=== PATIENT | male | born 1945 | race Asian ===

== ENCOUNTER 2018-02-07 08:21 | Inpatient (IN) | payer MEDICARE, BC ==
[~2018-02-07] VITALS: Ht 167.6 cm; Wt 77.3 kg
[2018-02-07] MEDS ORDERED: SODIUM CHLORIDE 0.9% 1,000 ML IV ONE ×3 (08:25→10:45)
[2018-02-07] MEDS ORDERED: HYDR-4106 PO (08:40)
[2018-02-07] MEDS ORDERED: MET750 PO (08:40)
[2018-02-07] MEDS ORDERED: ATOR40TA28 PO (08:40)
[2018-02-07] MEDS ORDERED: MOM30 PO (08:40)
[2018-02-07] MEDS ORDERED: SITA50 PO (08:40)
[2018-02-07] MEDS ORDERED: LISI-661 PO (08:40)
[2018-02-07] MEDS ORDERED: PARO10TA89 PO (08:40)
[2018-02-07] MEDS ORDERED: TERA2 PO (08:40)
[2018-02-07] MEDS ORDERED: LORA0.5T2 PO (08:40)
[2018-02-07] MEDS ORDERED: AMLO-512 PO (08:40)
[2018-02-07 08:47] LABS: EOSINOPHILS % (AUTO) 0.1 % (1.0-6.0); HEMATOCRIT 38.1 % (41-53); HEMOGLOBIN 12.5 g/dL (13.5-17.5); LYMPHOCYTES # (AUTO) 1.7 K/uL (1.0-4.8); LYMPHOCYTES % (AUTO) 7.3 % (22.0-44.0); MEAN CORPUSCULAR HEMOGLOBIN 26.9 pg (26.0-34.0); MEAN CORPUSCULAR HGB CONC 32.9 G/dL (31.0-37.0); MEAN CORPUSCULAR VOLUME 82 fL (80-100); MONOCYTES # (AUTO) 1.6 K/uL (0.1-1.0); NEUTROPHILS # (AUTO) 19.3 K/uL (1.8-7.7); NEUTROPHILS % (AUTO) 84.6 % (40.0-70.0); PLATELET COUNT (AUTO) 235 K/uL (150-450); RED BLOOD CELL COUNT(AUTO) 4.67 MIL/uL (4.50-5.90); RED CELL DISTRIBUTION WIDTH 14.2 % (11.5-14.5)
[2018-02-07 08:57] LABS: ANION GAP 6 mmol/L (8-16); CALCIUM, TOTAL 8.4 mg/dL (8.8-10.5); CARBON DIOXIDE 31 mmol/L (22-29); CHLORIDE 100 mmol/L (98-107); CREATININE 3.17 mg/dL (0.60-1.30); GLOMERULAR FILTR. RATE CALC 19 mL/min (>60); GLUCOSE,RANDOM 258 mg/dL (70-110); POTASSIUM 5.6 mmol/L (3.5-5.1); SODIUM SERUM 137 mmol/L (136-145); UREA NITROGEN, BLOOD 64 mg/dL (7-18)
[2018-02-07 08:59] LABS: INR 1.1 (0.9-1.1); PROTHROMBIN TIME 11.1 SEC (9.4-11.6)
[2018-02-07 09:14] LABS: APPEARANCE,URINE HAZY (CLEAR)
[2018-02-07 09:15] LABS: BILIRUBIN,URINE NEGATIVE (NEGATIVE); GLUCOSE, URINE (UA) NEGATIVE (NEGATIVE); KETONES,URINE NEGATIVE (NEGATIVE); LEUKOCYTE ESTERASE ,URINE NEGATIVE (NEGATIVE); NITRATE,URINE NEGATIVE (NEGATIVE); OCCULT BLOOD,URINE SMALL (NEGATIVE); PROTEIN,URINE SEE CONFIRM (NEGATIVE); UROBILINOGEN,URINE 0.2 mg/dL (<=1.0)
[2018-02-07 09:22] LABS: ALANINE AMINOTRANSFERASE 25 U/L (12-78); ALBUMIN 2.7 g/dL (3.4-5.0); ALKALINE PHOSPHATASE 80 U/L (46-116); ASPARTATE AMINOTRANSFERASE 21 U/L (15-37); BILIRUBIN,TOTAL 0.5 mg/dL (0.1-1.0); CREATINE KINASE MB 4.9 ng/mL (0-5); CREATINE KINASE, TOTAL 390 U/L (39-308); TOTAL PROTEIN, SERUM 6.6 g/dL (6.4-8.2)
[2018-02-07 09:22] LABS: SULFOSALICYLIC ACID,URINE 4+ (Negative)
[2018-02-07 09:23] LABS: WBC,URINE 0-2 /HPF (0-5)
[2018-02-07 09:24] LABS: BACTERIA,URINE Few /HPF (None Seen); SQUAMOUS EPITHELIAL CELL,UR Rare /LPF (None Seen)
[2018-02-07] MEDS ORDERED: CEFEPIME HCL 2 GM in DEXTROSE 5%-WATER 20 ML IV ONE (09:30)
[2018-02-07] MEDS ORDERED: VANCOMYCIN HCL 1 GM/D5% WATER 200 ML IV ONE (09:30)
[2018-02-07] MEDS ORDERED: TOBRAMYCIN SULFATE 80 MG in DEXTROSE 5%-WATER 50 ML IV ONE (09:30)
[2018-02-07 10:21] LABS: LACTIC ACID 2.2 mmol/L (0.4-2.0)
[2018-02-07] MEDS ORDERED: ACETAMINOPHEN 325 MG TABLET PO PRN (10:45)
[2018-02-07] MEDS ORDERED: ONDANSETRON HCL 4 MG/2 ML VIAL IVP PRN (10:45)
[2018-02-07] MEDS ORDERED: ALBUTEROL SULFATE 2.5 MG/0.5 ML NEB SOLUTION NEB PRN (11:15)
[2018-02-07] MEDS ORDERED: DEXTROSE 50%-WATER 25 GM/50 ML SYRINGE IVP PRN (11:15)
[2018-02-07] MEDS ORDERED: BISACODYL 10 MG RECTAL RECTAL SUPPOSITORY PR PRN (11:15)
[2018-02-07 11:47] VITALS: BP 137/65
[2018-02-07] MEDS: INSULIN LISPRO 100 UNITS/ML SQ PRN ×3 (12:07→21:08)
[2018-02-07] MEDS: SODIUM CHLORIDE 0.45% 1,000 ML IV SCH (14:17)
[2018-02-07 15:36] VITALS: BP 103/69
[2018-02-07] MEDS ORDERED: VANCOMYCIN HCL 500 MG in DEXTROSE 5%-WATER 100 ML IV ONE (17:00)
[2018-02-07 19:49] VITALS: BP 100/51
[2018-02-07] MEDS: HEPARIN SODIUM,PORCINE 5,000 UNITS/ML VIAL SQ SCH (21:04)
[2018-02-07] MEDS: DOCUSATE SODIUM 100 MG CAPSULE PO SCH (21:04)
[2018-02-07 22:23] LABS: GLUCOMETER DEV NAME(LOC) 5S 2Q; GLUCOSE,POINT OF CARE 169 MG/DL (70-110)
[2018-02-07 23:30] VITALS: BP 107/54
[2018-02-08 03:31] VITALS: BP 111/63
[2018-02-08] MEDS: SODIUM CHLORIDE 0.45% 1,000 ML IV SCH ×2 (06:30→18:25)
[2018-02-08 06:33] LABS: GLUCOMETER DEV NAME(LOC) 5N 1P; GLUCOSE,POINT OF CARE 190 MG/DL (70-110)
[2018-02-08 06:34] LABS: GLUCOMETER DEV NAME(LOC) 5N 1P; GLUCOSE,POINT OF CARE 124 MG/DL (70-110)
[2018-02-08 06:34] LABS: GLUCOMETER DEV NAME(LOC) 5N 1P; GLUCOSE,POINT OF CARE 166 MG/DL (70-110)
[2018-02-08 07:07] LABS: VANCOMYCIN,RANDOM 11.8 mcg/mL (25.0-50.0)
[2018-02-08] MEDS ORDERED: VANCOMYCIN HCL 1 GM/D5% WATER 200 ML IV ONE (08:00)
[2018-02-08] MEDS ORDERED: VANCOMYCIN HCL 1 GM/D5% WATER 200 ML IV PRN (08:00)
[2018-02-08 08:16] VITALS: BP 110/80
[2018-02-08 08:23] LABS: CALCIUM, TOTAL 7.9 mg/dL (8.8-10.5); CREATININE 2.86 mg/dL (0.60-1.30); POTASSIUM 4.8 mmol/L (3.5-5.1)
[2018-02-08] MEDS: DOCUSATE SODIUM 100 MG CAPSULE PO SCH ×2 (08:53→20:38)
[2018-02-08] MEDS: HEPARIN SODIUM,PORCINE 5,000 UNITS/ML VIAL SQ SCH ×2 (08:53→20:38)
[2018-02-08] MEDS: PANTOPRAZOLE SODIUM 40 MG DR TABLET PO SCH (08:53)
[2018-02-08] MEDS: PIPERACILLIN SODIUM/TAZOBACTAM 2.25 GM in DEXTROSE 5%-WATER 50 ML IV SCH ×3 (10:07→20:39)
[2018-02-08 11:52] LABS: MAGNESIUM 1.7 mg/dL (1.80-2.40)
[2018-02-08 12:12] VITALS: BP 118/70
[2018-02-08] MEDS: LORazepam 0.5 MG TABLET PO PRN ×2 (12:59→20:38)
[2018-02-08] MEDS: INSULIN LISPRO 100 UNITS/ML SQ PRN (13:01)
[2018-02-08 16:10] VITALS: BP 144/78
[2018-02-08 19:46] VITALS: BP 158/76
[2018-02-08 19:57] LABS: GLUCOMETER DEV NAME(LOC) 5N 1P; GLUCOSE,POINT OF CARE 140 MG/DL (70-110)
[2018-02-08 19:57] LABS: GLUCOMETER DEV NAME(LOC) 5N 1P; GLUCOSE,POINT OF CARE 168 MG/DL (70-110)
[2018-02-08] MEDS: ACETAMINOPHEN 325 MG TABLET PO PRN (20:38)
[2018-02-08 23:45] VITALS: BP 140/66
[2018-02-09] MEDS: PIPERACILLIN SODIUM/TAZOBACTAM 2.25 GM in DEXTROSE 5%-WATER 50 ML IV SCH ×4 (02:54→20:36)
[2018-02-09 04:16] VITALS: BP 147/81
[2018-02-09 06:11] LABS: BASOPHILS % (AUTO) 0.4 % (0.0-2.0); EOSINOPHILS % (AUTO) 1.8 % (1.0-6.0); HEMATOCRIT 32.1 % (41-53); HEMOGLOBIN 11.1 g/dL (13.5-17.5); LYMPHOCYTES # (AUTO) 0.6 K/uL (1.0-4.8); LYMPHOCYTES % (AUTO) 6.6 % (22.0-44.0); MEAN CORPUSCULAR HEMOGLOBIN 27.6 pg (26.0-34.0); MEAN CORPUSCULAR HGB CONC 34.5 G/dL (31.0-37.0); MEAN CORPUSCULAR VOLUME 80 fL (80-100); MONOCYTES # (AUTO) 0.7 K/uL (0.1-1.0); MONOCYTES % (AUTO) 7.4 % (2.0-9.0); NEUTROPHILS % (AUTO) 83.8 % (40.0-70.0); PLATELET COUNT (AUTO) 149 K/uL (150-450); RED BLOOD CELL COUNT(AUTO) 4.02 MIL/uL (4.50-5.90); RED CELL DISTRIBUTION WIDTH 14.6 % (11.5-14.5)
[2018-02-09 06:18] LABS: GLUCOMETER DEV NAME(LOC) 5N 1P; GLUCOSE,POINT OF CARE 174 MG/DL (70-110)
[2018-02-09 06:48] LABS: CALCIUM, TOTAL 8.1 mg/dL (8.8-10.5); CREATININE 2.15 mg/dL (0.60-1.30); POTASSIUM 4.1 mmol/L (3.5-5.1); VANCOMYCIN,RANDOM 16.8 mcg/mL (25.0-50.0)
[2018-02-09 07:43] LABS: GLUCOMETER DEV NAME(LOC) 5N 1P; GLUCOSE,POINT OF CARE 162 MG/DL (70-110)
[2018-02-09 07:48] VITALS: BP 154/96
[2018-02-09] MEDS: DOCUSATE SODIUM 100 MG CAPSULE PO SCH ×2 (08:30→20:36)
[2018-02-09] MEDS: PANTOPRAZOLE SODIUM 40 MG DR TABLET PO SCH (08:31)
[2018-02-09] MEDS: HEPARIN SODIUM,PORCINE 5,000 UNITS/ML VIAL SQ SCH ×2 (08:31→20:36)
[2018-02-09] MEDS: SODIUM CHLORIDE 0.45% 1,000 ML IV SCH (08:32)
[2018-02-09 12:17] VITALS: BP 151/79
[2018-02-09 12:38] LABS: GLUCOMETER DEV NAME(LOC) 5N 1P; GLUCOSE,POINT OF CARE 218 MG/DL (70-110)
[2018-02-09] MEDS: QUEtiapine FUMARATE 25 MG TABLET PO SCH ×2 (12:43→23:33)
[2018-02-09] MEDS: INSULIN LISPRO 100 UNITS/ML SQ PRN ×2 (12:44→20:53)
[2018-02-09] MEDS ORDERED: VANCOMYCIN HCL 1 GM/D5% WATER 200 ML IV ONE (13:00)
[2018-02-09 15:40] VITALS: BP 149/90
[2018-02-09] MEDS: ACETAMINOPHEN 325 MG TABLET PO PRN ×2 (16:40→23:33)
[2018-02-09 17:17] LABS: GLUCOMETER DEV NAME(LOC) 5N 1P; GLUCOSE,POINT OF CARE 179 MG/DL (70-110)
[2018-02-09 19:00] VITALS: BP 163/87
[2018-02-09] MEDS: LORazepam 0.5 MG TABLET PO PRN (20:49)
[2018-02-09 22:27] LABS: GLUCOMETER DEV NAME(LOC) 6N 2D; GLUCOSE,POINT OF CARE 165 MG/DL (70-110)
[2018-02-09 23:30] VITALS: BP 159/79
[2018-02-10] MEDS: PIPERACILLIN SODIUM/TAZOBACTAM 2.25 GM in DEXTROSE 5%-WATER 50 ML IV SCH ×2 (01:55→08:20)
[2018-02-10] MEDS: SODIUM CHLORIDE 0.45% 1,000 ML IV SCH (01:58)
[2018-02-10 04:00] VITALS: BP 144/64
[2018-02-10] MEDS: ACETAMINOPHEN 325 MG TABLET PO PRN ×4 (05:57→22:44)
[2018-02-10] MEDS: INSULIN LISPRO 100 UNITS/ML SQ PRN ×4 (05:58→21:03)
[2018-02-10 06:08] LABS: GLUCOMETER DEV NAME(LOC) 6N 2D; GLUCOSE,POINT OF CARE 162 MG/DL (70-110)
[2018-02-10 06:35] LABS: CALCIUM, TOTAL 8.1 mg/dL (8.8-10.5); CREATININE 1.86 mg/dL (0.60-1.30)
[2018-02-10 08:19] VITALS: BP 149/95
[2018-02-10] MEDS: HEPARIN SODIUM,PORCINE 5,000 UNITS/ML VIAL SQ SCH (08:27)
[2018-02-10] MEDS: QUEtiapine FUMARATE 25 MG TABLET PO SCH ×2 (09:06→20:50)
[2018-02-10] MEDS: PANTOPRAZOLE SODIUM 40 MG DR TABLET PO SCH (09:06)
[2018-02-10] MEDS: DOCUSATE SODIUM 100 MG CAPSULE PO SCH ×2 (09:06→20:50)
[2018-02-10] MEDS: VANCOMYCIN HCL 1 GM/D5% WATER 200 ML IV SCH (09:08)
[2018-02-10 11:47] VITALS: BP 139/75
[2018-02-10 11:57] LABS: GLUCOMETER DEV NAME(LOC) 6N 1E; GLUCOSE,POINT OF CARE 198 MG/DL (70-110)
[2018-02-10] MEDS: LORazepam 0.5 MG TABLET PO PRN ×3 (12:22→23:47)
[2018-02-10 16:43] VITALS: BP 150/70
[2018-02-10 17:43] LABS: GLUCOMETER DEV NAME(LOC) 6N 1E; GLUCOSE,POINT OF CARE 144 MG/DL (70-110)
[2018-02-10 18:18] LABS: BASOPHILS % (AUTO) 0.7 % (0.0-2.0); HEMATOCRIT 32.8 % (41-53); HEMOGLOBIN 11.2 g/dL (13.5-17.5); LYMPHOCYTES % (AUTO) 13.1 % (22.0-44.0); MEAN CORPUSCULAR HEMOGLOBIN 27.4 pg (26.0-34.0); MEAN CORPUSCULAR VOLUME 81 fL (80-100); MONOCYTES # (AUTO) 0.8 K/uL (0.1-1.0); MONOCYTES % (AUTO) 10.3 % (2.0-9.0); NEUTROPHILS # (AUTO) 5.7 K/uL (1.8-7.7); NEUTROPHILS % (AUTO) 72.9 % (40.0-70.0); PLATELET COUNT (AUTO) 176 K/uL (150-450); RED BLOOD CELL COUNT(AUTO) 4.07 MIL/uL (4.50-5.90); RED CELL DISTRIBUTION WIDTH 14.7 % (11.5-14.5)
[2018-02-10 19:30] VITALS: BP 147/74
[2018-02-10] MEDS: PANTOPRAZOLE SODIUM 40 MG/VIAL IVP SCH (20:51)
[2018-02-10 23:44] VITALS: BP 125/78
[2018-02-10 23:57] LABS: GLUCOMETER DEV NAME(LOC) 6N 2D; GLUCOSE,POINT OF CARE 167 MG/DL (70-110)
[2018-02-11] MEDS: ACETAMINOPHEN 325 MG TABLET PO PRN (02:47)
[2018-02-11 03:38] LABS: GLUCOMETER DEV NAME(LOC) 6N 2D; GLUCOSE,POINT OF CARE 154 MG/DL (70-110)
[2018-02-11 05:00] VITALS: BP 130/69
[2018-02-11] MEDS: LORazepam 0.5 MG TABLET PO PRN (05:16)
[2018-02-11] MEDS: SODIUM CHLORIDE 0.45% 1,000 ML IV SCH ×2 (05:16→20:00)
[2018-02-11 05:43] LABS: GLUCOMETER DEV NAME(LOC) 6N 2D; GLUCOSE,POINT OF CARE 140 MG/DL (70-110)
[2018-02-11 07:34] VITALS: BP 163/80
[2018-02-11 08:26] LABS: BASOPHILS % (AUTO) 0.7 % (0.0-2.0); EOSINOPHILS % (AUTO) 4.1 % (1.0-6.0); HEMATOCRIT 33.1 % (41-53); HEMOGLOBIN 11.2 g/dL (13.5-17.5); LYMPHOCYTES % (AUTO) 14.7 % (22.0-44.0); MEAN CORPUSCULAR HEMOGLOBIN 27.4 pg (26.0-34.0); MEAN CORPUSCULAR HGB CONC 33.8 G/dL (31.0-37.0); MEAN CORPUSCULAR VOLUME 81 fL (80-100); MONOCYTES # (AUTO) 0.6 K/uL (0.1-1.0); MONOCYTES % (AUTO) 8.6 % (2.0-9.0); NEUTROPHILS # (AUTO) 5.1 K/uL (1.8-7.7); NEUTROPHILS % (AUTO) 71.9 % (40.0-70.0); PLATELET COUNT (AUTO) 186 K/uL (150-450); RED BLOOD CELL COUNT(AUTO) 4.08 MIL/uL (4.50-5.90); RED CELL DISTRIBUTION WIDTH 14.6 % (11.5-14.5)
[2018-02-11 08:45] LABS: CALCIUM, TOTAL 8.2 mg/dL (8.8-10.5); CREATININE 1.76 mg/dL (0.60-1.30); POTASSIUM 3.8 mmol/L (3.5-5.1); VANCOMYCIN,RANDOM 18.8 mcg/mL (25.0-50.0)
[2018-02-11] MEDS: VANCOMYCIN HCL 1 GM/D5% WATER 200 ML IV SCH (08:49)
[2018-02-11] MEDS: QUEtiapine FUMARATE 25 MG TABLET PO SCH ×2 (08:49→20:24)
[2018-02-11] MEDS: DOCUSATE SODIUM 100 MG CAPSULE PO SCH ×2 (09:00→21:00)
[2018-02-11] MEDS: PANTOPRAZOLE SODIUM 40 MG/VIAL IVP SCH ×2 (09:33→21:45)
[2018-02-11] MEDS: LORazepam 2 MG/ML VIAL IVP PRN ×2 (10:08→16:09)
[2018-02-11] MEDS: INSULIN LISPRO 100 UNITS/ML SQ PRN (11:49)
[2018-02-11 11:55] VITALS: BP 154/83
[2018-02-11 13:03] LABS: GLUCOMETER DEV NAME(LOC) 6N 1E; GLUCOSE,POINT OF CARE 162 MG/DL (70-110)
[2018-02-11 15:39] VITALS: BP 164/98
[2018-02-11 20:00] VITALS: BP 148/74
[2018-02-12] VITALS (7 sets, daily range): BP systolic 133–181; BP diastolic 57–96
[2018-02-12 00:53] LABS: GLUCOMETER DEV NAME(LOC) 6N 1E; GLUCOSE,POINT OF CARE 106 MG/DL (70-110)
[2018-02-12 00:53] LABS: GLUCOMETER DEV NAME(LOC) 6N 2D; GLUCOSE,POINT OF CARE 112 MG/DL (70-110)
[2018-02-12] MEDS: LORazepam 2 MG/ML VIAL IVP PRN (01:33)
[2018-02-12 06:13] LABS: GLUCOMETER DEV NAME(LOC) 6N 2D; GLUCOSE,POINT OF CARE 104 MG/DL (70-110)
[2018-02-12 06:29] LABS: CALCIUM, TOTAL 8.5 mg/dL (8.8-10.5); CREATININE 1.61 mg/dL (0.60-1.30); POTASSIUM 3.9 mmol/L (3.5-5.1)
[2018-02-12] MEDS: QUEtiapine FUMARATE 25 MG TABLET PO SCH ×2 (08:05→20:11)
[2018-02-12] MEDS: DOCUSATE SODIUM 100 MG CAPSULE PO SCH ×2 (08:05→20:13)
[2018-02-12] MEDS: PANTOPRAZOLE SODIUM 40 MG/VIAL IVP SCH ×2 (08:05→20:11)
[2018-02-12] MEDS: VANCOMYCIN HCL 1 GM/D5% WATER 200 ML IV SCH (08:05)
[2018-02-12 10:30] LABS: BASOPHILS % (AUTO) 0.6 % (0.0-2.0); EOSINOPHILS % (AUTO) 4.4 % (1.0-6.0); HEMATOCRIT 33.9 % (41-53); HEMOGLOBIN 11.7 g/dL (13.5-17.5); LYMPHOCYTES # (AUTO) 1.1 K/uL (1.0-4.8); LYMPHOCYTES % (AUTO) 12.6 % (22.0-44.0); MEAN CORPUSCULAR HEMOGLOBIN 27.7 pg (26.0-34.0); MEAN CORPUSCULAR HGB CONC 34.4 G/dL (31.0-37.0); MEAN CORPUSCULAR VOLUME 81 fL (80-100); MONOCYTES # (AUTO) 0.8 K/uL (0.1-1.0); MONOCYTES % (AUTO) 9.8 % (2.0-9.0); NEUTROPHILS # (AUTO) 6.2 K/uL (1.8-7.7); NEUTROPHILS % (AUTO) 72.6 % (40.0-70.0); PLATELET COUNT (AUTO) 216 K/uL (150-450); RED BLOOD CELL COUNT(AUTO) 4.21 MIL/uL (4.50-5.90); RED CELL DISTRIBUTION WIDTH 14.7 % (11.5-14.5)
[2018-02-12 10:36] LABS: MAGNESIUM 1.9 mg/dL (1.80-2.40)
[2018-02-12 11:58] LABS: GLUCOMETER DEV NAME(LOC) 6N 2D; GLUCOSE,POINT OF CARE 123 MG/DL (70-110)
[2018-02-12] MEDS: AmLODIPine BESYLATE 5 MG TABLET PO SCH (14:13)
[2018-02-12] MEDS: ACETAMINOPHEN 325 MG TABLET PO PRN ×2 (15:38→20:35)
[2018-02-12 17:53] LABS: GLUCOMETER DEV NAME(LOC) 6N 1E; GLUCOSE,POINT OF CARE 116 MG/DL (70-110)
[2018-02-12] MEDS: INSULIN LISPRO 100 UNITS/ML SQ PRN (20:35)
[2018-02-12 21:33] LABS: GLUCOMETER DEV NAME(LOC) 6N 2D; GLUCOSE,POINT OF CARE 142 MG/DL (70-110)
[2018-02-13 03:39] VITALS: BP 149/86
[2018-02-13] MEDS: ACETAMINOPHEN 325 MG TABLET PO PRN (03:46)
[2018-02-13 05:59] LABS: BASOPHILS % (AUTO) 0.6 % (0.0-2.0); EOSINOPHILS % (AUTO) 5.6 % (1.0-6.0); HEMATOCRIT 31.9 % (41-53); HEMOGLOBIN 10.8 g/dL (13.5-17.5); LYMPHOCYTES # (AUTO) 1.2 K/uL (1.0-4.8); LYMPHOCYTES % (AUTO) 14.2 % (22.0-44.0); MEAN CORPUSCULAR HEMOGLOBIN 27.2 pg (26.0-34.0); MEAN CORPUSCULAR HGB CONC 33.7 G/dL (31.0-37.0); MEAN CORPUSCULAR VOLUME 81 fL (80-100); MONOCYTES # (AUTO) 0.8 K/uL (0.1-1.0); MONOCYTES % (AUTO) 10.2 % (2.0-9.0); NEUTROPHILS # (AUTO) 5.6 K/uL (1.8-7.7); NEUTROPHILS % (AUTO) 69.4 % (40.0-70.0); PLATELET COUNT (AUTO) 215 K/uL (150-450); RED BLOOD CELL COUNT(AUTO) 3.96 MIL/uL (4.50-5.90); RED CELL DISTRIBUTION WIDTH 14.1 % (11.5-14.5)
[2018-02-13 06:19] LABS: CREATININE 1.78 mg/dL (0.60-1.30); POTASSIUM 3.4 mmol/L (3.5-5.1)
[2018-02-13] MEDS: INSULIN LISPRO 100 UNITS/ML SQ PRN ×2 (06:23→11:34)
[2018-02-13 06:44] LABS: GLUCOMETER DEV NAME(LOC) 6N 2D; GLUCOSE,POINT OF CARE 155 MG/DL (70-110)
[2018-02-13 07:34] VITALS: BP 151/81
[2018-02-13] MEDS: AmLODIPine BESYLATE 5 MG TABLET PO SCH (08:17)
[2018-02-13] MEDS: PANTOPRAZOLE SODIUM 40 MG/VIAL IVP SCH (08:17)
[2018-02-13] MEDS: QUEtiapine FUMARATE 25 MG TABLET PO SCH (08:17)
[2018-02-13] MEDS: VANCOMYCIN HCL 1 GM/D5% WATER 200 ML IV SCH (08:17)
[2018-02-13] MEDS: DOCUSATE SODIUM 100 MG CAPSULE PO SCH (08:18)
[2018-02-13] MEDS ORDERED: POTASSIUM CHLORIDE 20 MEQ ER TABLET PO ONE (11:00)
[2018-02-13] MEDS: LORazepam 2 MG/ML VIAL IVP PRN ×2 (11:13→16:25)
[2018-02-13 12:05] VITALS: BP 143/92
[2018-02-13 14:23] LABS: GLUCOMETER DEV NAME(LOC) 6N 1E; GLUCOSE,POINT OF CARE 183 MG/DL (70-110)
[2018-02-13] MEDS ORDERED: QUEtiapine FUMARATE 25 MG TABLET PO SCH (21:00)
== END 2018-02-13 17:30 | disposition home or self-care (01) | DRG 871 ==
LOC: EMS 08:23 → 5N 10:09 → 4S 02-09 18:44 → 6N 02-09 18:44 → 5N 02-09 18:44 → 6N 02-09 19:00
PROVIDERS: ADMIT Internal Medicine; ATTEND Internal Medicine
DX: A41.9 Sepsis, unspecified organism (principal); J18.9 Pneumonia, unspecified organism; R65.21 Severe sepsis with septic shock; G93.40 Encephalopathy, unspecified; N17.9 Acute kidney failure, unspecified; K92.1 Melena; E87.5 Hyperkalemia; E11.22 Type 2 diabetes mellitus with diabetic chronic kidney disease; F02.80 Dementia in other diseases classified elsewhere, unspecified severity, without behavioral disturbance, psychotic disturbance, mood disturbance, and anxiety; N18.9 Chronic kidney disease, unspecified; I12.9 Hypertensive chronic kidney disease with stage 1 through stage 4 chronic kidney disease, or unspecified chronic kidney disease; E78.00 Pure hypercholesterolemia, unspecified; F32.9 Major depressive disorder, single episode, unspecified; R09.02 Hypoxemia; G30.9 Alzheimer's disease, unspecified; Z66 Do not resuscitate; Z98.1 Arthrodesis status; Z78.1 Physical restraint status; Z79.899 Other long term (current) drug therapy
CPT/HCPCS: 51702; 70450; 74018; 82270; 82271; 83605; 83735; 87040; 87081; 93005; 96365; 96367; 96368; 99291; C9113; J0692; J1644; J2060; J2543; J3260; J3370; J7030; J7060